=== PATIENT | female | born 1965 | race Caucasian/White ===

== ENCOUNTER 2019-05-31 14:40 | Emergency (ER) | END 2019-05-31 17:14 | disposition home or self-care (01) | DX: M54.5 Low back pain (principal); M54.6 Pain in thoracic spine; R51 Headache; I10 Essential (primary) hypertension; F41.9 Anxiety disorder, unspecified; Z79.899 Other long term (current) drug therapy | CPT/HCPCS: 36415; 80048; 81001; 85025; 87086; 96372 ×2; 99283; J2270; J2405 ==